=== PATIENT | female | born 1995 | race Caucasian/White ===

== ENCOUNTER 2018-06-10 09:00 | Outpatient (CLI) | payer OTHER ==
--- NOTE | 2018-06-10 11:25 | ULT ---
ULTRASOUND ABDOMEN: Date: 06/10/18 HISTORY: Abdominal pain. COMPARISON: None. TECHNIQUE: Real-time Wren scale with color Doppler and spectral analysis of the abdomen performed. FINDINGS: The intrahepatic echotexture is normal. Visualized portions of the aorta and IVC are unremarkable. Li pat measures 14.6 cm in length. Portal vein is patent with antegrade flow. Gallbladder wall thickness is normal. Both kidneys are unremarkable. No renal mass, hydronephrosis, o r abnormal calcifications. Spleen measures 9.4 cm in length. IMPRESSION: Normal exam. POS: [facility]
--- NOTE | 2018-06-10 12:31 | ULT ---
PELVIC ULTRASOUND: HISTORY: The patient has not had a period in several years. Bloating. History of Crohn's. FINDINGS: Real-time imaging of the pelvis was obtained transabdominally as well as with an endovaginal probe. This shows a uterus measuring 3.8 x 4.1 x 9.4 cm. Endometrium is mildly thickened at 7 cm. The right ovary is difficult to visualize but appears fairly normal in appearance. The left ovary is never definitively seen. There is some free fluid in the cul-de-sac. DOPPLER EVALUATION WITH SPECTRAL ANALYSIS: Normal flow is shown to the right adnexal region. IMPRESSION: 1. Mildly thickened endometrium. 2. Normal-appearing right ovary. The left ovary is not visualized. POS: [facility]
== END 2018-06-10 09:01 | disposition home or self-care (01) ==
LOC: SCSULT 09:00
PROVIDERS: ATTEND Internal Medicine Gastroenterology
DX: R14.0 Abdominal distension (gaseous) (principal); K50.90 Crohn's disease, unspecified, without complications; E55.9 Vitamin D deficiency, unspecified; R63.5 Abnormal weight gain; N30.10 Interstitial cystitis (chronic) without hematuria; R93.8 Abnormal findings on diagnostic imaging of other specified body structures
CPT/HCPCS: 76700; 76856

== ENCOUNTER 2020-06-14 18:00 | Inpatient (IN) | payer BC, OTHER ==
[~2020-06-14 18:00] MED LIST: Bupivacaine HCl 0.5%/Epinephrine 1:200,000/PF 30 ml Vial ONE; Bupivacaine/Epinephrine 0.25% 30 ML VIAL ONE
[2020-06-14] MEDS ORDERED: Lidocaine 1% (PF) 30 ML VIAL SC PRN (19:20)
[2020-06-14] MEDS ORDERED: Misoprostol 200 MCG TAB PR PRN (19:20)
[2020-06-14] MEDS ORDERED: Ibuprofen 800 MG TAB PO PRN (19:20)
[2020-06-14] MEDS ORDERED: HYDROcodone/Acetaminophen 5/325 mg Tablet PO PRN (19:20)
[2020-06-14] MEDS ORDERED: Ondansetron PF 4 MG/2 ML Vial IVP PRN (19:20)
[2020-06-14] MEDS ORDERED: Diphenoxylate HCl/Atropine Tablet PO PRN (19:20)
[2020-06-14] MEDS ORDERED: Carboprost 250 MCG/ML AMP IM PRN (19:20)
[2020-06-14] MEDS ORDERED: Promethazine HCl 25 MG/ML VIAL IM PRN (19:20)
[2020-06-14] MEDS ORDERED: NS / Oxytocin 40 units/1000ml 1,000 ML IV PRN (19:20)
[2020-06-14] MEDS ORDERED: Methylergonovine 0.2 MG/ML VIAL IM PRN (19:20)
[2020-06-14] MEDS ORDERED: hydrALAZINE 20 MG/ML VIAL SLOW IVP PRN (19:20)
[2020-06-14] MEDS ORDERED: Acetaminophen 500 MG TAB PO PRN (19:20)
[2020-06-14] MEDS: Lactated Ringer's 1,000 ML IV SCH (19:40)
[2020-06-14 20:06] VITALS: BMI 33.5
[2020-06-14] MEDS: Misoprostol 100 MCG TAB VAG SCH (20:20)
[2020-06-14] MEDS: NS w/ Oxytocin 10 units 500 ML IV SCH (20:22)
[2020-06-14 20:41] LABS: Hemoglobin 10.7 g/dL (12.0-16.0); Mean Corpuscular HGB CONC 35.4 g/dL (32.0-36.0); Mean Corpuscular Hemoglobin 31.1 pg (27.0-31.0); Mean Corpuscular Volume 87.9 fL (78.0-98.0); Mean Platelet Volume 7.1 fL (7.4-10.4); Platelet Count 266 thou/uL (130-400); RBC Distribution Width 12.5 % (11.5-14.5); Red Blood Cell (RBC) Count 3.45 mill/uL (4.20-5.40); White Blood Cell (WBC) Count 8.5 thou/uL (4.8-10.8)
[2020-06-14 21:17] LABS: Syphilis Antibody Nonreactive (Nonreactive); Syphilis Antibody Index 0.03 S/CO (<1.00 Non-Reactive)
[2020-06-14 23:51] LABS: HBSAg Index 0.11 S/CO (0-0.99); Hep B Surf Ag Non-Reactive S/CO (NonReactive)
[2020-06-15] MEDS: Butorphanol Tartrate 1 MG/ML VIAL SLOW IVP PRN ×2 (00:09→04:29)
[2020-06-15] MEDS: Misoprostol 100 MCG TAB VAG SCH ×7 (00:10→21:42)
[2020-06-15] MEDS: Lactated Ringer's 1,000 ML IV SCH ×3 (02:45→15:25)
[2020-06-15] MEDS ORDERED: Fentanyl 4 mcg/Bup 0.1% Cadd 100 ML ONE ×2 (07:16→14:28)
[2020-06-15] MEDS ORDERED: Naloxone HCl 0.4 mg/ml Vial IVP PRN ×4 (07:49→15:19)
[2020-06-15] MEDS ORDERED: EPHEDRINE 25 MG/5 ML SYRINGE SLOW IVP PRN ×2 (07:49→15:19)
[2020-06-15] MEDS ORDERED: Promethazine HCl 25 MG/ML VIAL IM PRN ×2 (07:49→15:19)
[2020-06-15] MEDS ORDERED: Acetaminophen 325 MG TAB PO PRN ×2 (07:49→15:19)
[2020-06-15] MEDS ORDERED: Ondansetron PF 4 MG/2 ML Vial IVP PRN ×2 (07:49→15:19)
[2020-06-15] MEDS ORDERED: diphenhydrAMINE 50 MG/ML VIAL IVP PRN ×2 (07:49→15:19)
[2020-06-15] MEDS ORDERED: Lactated Ringer's 500 ML IV PRN ×2 (07:49→15:19)
[2020-06-15] MEDS ORDERED: Fentanyl 4 mcg/Bupivacaine 0.1% Cassette 100 ML EPIDURAL SCH ×2 (08:00→15:30)
[2020-06-15] MEDS ORDERED: Communication Order-Pharmacy FS SCH ×2 (08:00→15:30)
--- NOTE | 2020-06-15 08:34 | PDOC.LDHP ---
Labor and Delivery H&P Chief complaint: scheduled induction HPI: 25yo at 37w1d by LMP here for IOL due to anti salvador ab. Pt also has crohns. s/p cytotec x [address] FHR reassuring. Current gestational age (weeks): 37 Due date: 07/05/20 Dating criteria: last menstrual period Grav: 1 Para: 0 Current complications: other (anti salvador ab positive, fob salvador antigen positive also.) Abnormal US findings: No Past Medical History: crohns, endometriosis, interstitial cystitis Current medications: pre- vitamins, other (remicaide) Previous surgical history: other (laparoscopy, endoscopy, colonoscopy) Allergies/Adverse Reactions: Allergies Allergy/AdvReac Type Severity Reaction Status Date / Time amoxicillin Allergy Rash Verified 06/14/20 19:48 Sulfa (Sulfonamide Allergy Rash Verified 06/14/20 19:48 Antibiotics) Social history: none - Physical Exam Vital signs reviewed and normal: yes General: NAD Heart: RRR Lungs: CTAB Abdomen: gravid Extremeties: no edema FHT: category 1 [place] contractions every: 2-3min - Vaginal Exam cm dilated: 3 Effacement: 50% Station: -3 (arom clear) - OB Labs Blood type: A RH: positive Antibody Screen: positive HIV: negative RPR: negative HEPSAg: negative 1 hour GCT: negative GBS: negative Urine drug screen: negative Rubella: immune - Assessment L&D Assessment: medically indicated induction - Plan Plan: admit to L&D, cervical ripening, labor augmentation if indicated, informed consent obtained, anesthesia consult for pain management
[2020-06-15] MEDS: NS w/ Oxytocin 10 units 500 ML IV SCH (08:55)
[2020-06-15] MEDS ORDERED: Misoprostol 200 MCG TAB ONE (23:09)
[2020-06-15] MEDS ORDERED: NS / Oxytocin 40 units/1000ml 0 ML ONE (23:10)
[2020-06-15] MEDS ORDERED: Methylergonovine 0.2 MG/ML VIAL ONE (23:10)
[2020-06-15] MEDS ORDERED: Carboprost 250 MCG/ML AMP ONE (23:10)
--- NOTE | 2020-06-16 00:17 | PDOC.OPDEL ---
OB Operative/Delivery Note Delivery Dr/Surgeon: Hermes Assist: Sebastian ([id number]) Pre-Delivery Diagnosis: active labor, other (Olivia antibody) Procedure/Post Delivery Dx: spontaneous vaginal delivery Anesthesia: epidural - Findings A Sex: male - 1 min: 8 - 5 min: 9 - Additional Findings/Plan Placenta delivered: spontaneous (Vaz about 3 minutes after baby delivery; placenta intact with 3VC) Repaired Obstetrical Laceration: none Estimated blood loss: 450 Compilations/Other Findings: No complications No lacs noted as we allowed perineal muscles to accomodate with head at +4/+5 for 1-2 pushes No vag packs Post delivery plan: routine recovery
[2020-06-16] MEDS ORDERED: Milk Of Magnesia 30 ML UDCUP PO PRN (00:19)
[2020-06-16] MEDS ORDERED: hydrALAZINE 20 MG/ML VIAL SLOW IVP PRN (00:19)
[2020-06-16] MEDS ORDERED: Bisacodyl 10 MG SUPP PR PRN (00:19)
[2020-06-16] MEDS ORDERED: Benzocaine-Menthol 82.5 ML CAN TOP PRN (00:19)
[2020-06-16] MEDS ORDERED: Preparation H Ointment 28 GM TUBE PR PRN (00:19)
[2020-06-16] MEDS ORDERED: Acetaminophen/Codeine 30-300mg Tablet PO PRN ×2 (00:19)
[2020-06-16] MEDS ORDERED: Lanolin Ointment 7 GM TUBE TOP PRN (00:19)
[2020-06-16] MEDS ORDERED: NS / Oxytocin 40 units/1000ml 1,000 ML IV SCH (00:30)
[2020-06-16] MEDS: Ibuprofen 800 MG TAB PO SCH ×3 (00:52→20:08)
[2020-06-16] MEDS: Lactated Ringer's 1,000 ML IV SCH ×3 (01:54→20:25)
[2020-06-16] MEDS: Misoprostol 100 MCG TAB VAG SCH ×2 (01:55→02:18)
[2020-06-16] MEDS: Docusate Calcium (SURFAK) 240 MG CAP PO SCH ×2 (08:24→20:08)
[2020-06-16] MEDS: Prenatal Vitamin 1 TAB PO SCH (08:24)
[2020-06-16] MEDS: Ferrous Sulfate 325 MG TAB PO SCH ×2 (08:25→13:56)
--- NOTE | 2020-06-16 08:30 | PDOC.PP ---
Post Progress Note Post Day #: 1 PO intake tolerated: yes Flatus: yes Ambulation: yes Vital Signs (12 hours) Temp Pulse Resp BP Pulse Ox 06/16/20 08:01 98.3 F 72 20 110/64 96 06/16/20 05:35 98.0 F 71 15 115/55 L 06/16/20 04:20 98.3 F 76 16 116/64 06/16/20 02:55 98.5 F 66 17 114/59 L Weight Weight 189 lb - Physical Examination General: NAD Respiratory: non-labored breathing Abdominal: no distention, appropriately TTP Fundus firm & at: umb Extremities: negative homans (B) Neurological: no gross focal deficits Psychiatric: normal affect Result Diagrams: 06/14/20 20:09 Additional Labs: Post Labs Hep Bs Antigen Non-Reactive S/CO (NonReactive) 06/14/20 20:09 Blood Type A POSITIVE 06/14/20 22:38 - Assessment/Plan PPD1 s/p TSVD Doing well, no complaints, lochia appropriate Cont PP care
[2020-06-16] MEDS ORDERED: Measles/Mumps/Rubella 10 MCG/0.5 ML VIAL SC ONE (09:00)
[2020-06-16] MEDS ORDERED: Varicella virus, LIVE 0.5 ML VIAL SC ONE (09:00)
[2020-06-16] MEDS ORDERED: Adacel (T-DAP) 0.5 ML SYRINGE IM ONE (09:00)
[2020-06-16] MEDS: NS w/ Oxytocin 10 units 500 ML IV SCH (19:25)
[2020-06-17] MEDS: Ibuprofen 800 MG TAB PO SCH ×2 (05:34→14:05)
[2020-06-17] MEDS ORDERED: Ondansetron ODT 4 MG TAB PO PRN (08:32)
[2020-06-17] MEDS: Ferrous Sulfate 325 MG TAB PO SCH (08:54)
[2020-06-17] MEDS: Lactated Ringer's 1,000 ML IV SCH (08:56)
[2020-06-17] MEDS: Prenatal Vitamin 1 TAB PO SCH (08:59)
[2020-06-17] MEDS: Docusate Calcium (SURFAK) 240 MG CAP PO SCH (09:00)
[2020-06-17 12:35] VITALS: BP 128/71; TEMP 98.6
--- NOTE | 2020-06-17 13:03 | PDOC.PP ---
Post Progress Note Post Day #: 2 PO intake tolerated: yes Flatus: yes Ambulation: yes Vital Signs (12 hours) Temp Pulse Resp BP Pulse Ox 06/17/20 08:00 98.6 F 96 12 128/71 96 Weight Weight 189 lb - Physical Examination General: NAD Respiratory: non-labored breathing Abdominal: no distention, appropriately TTP Neurological: no gross focal deficits Psychiatric: normal affect Result Diagrams: 06/14/20 20:09 Additional Labs: Post Labs Hep Bs Antigen Non-Reactive S/CO (NonReactive) 06/14/20 20:09 Blood Type A POSITIVE 06/14/20 22:38 - Assessment/Plan PPD2 s/p TSVD VSSAF No issues Rh pos RImm DC home FU 6w
== END 2020-06-17 16:05 | disposition home or self-care (01) | DRG 806 ==
LOC: L&D 18:09 → 3SW 06-16 03:16
PROVIDERS: ADMIT Student in an Organized Health Care Education/Training Program; ATTEND Student in an Organized Health Care Education/Training Program
PROC: 10E0XZZ Delivery of Products of Conception, External Approach (ICD-10-PCS; principal; 2020-06-16)
PROC: 3E033VJ Introduction of Other Hormone into Peripheral Vein, Percutaneous Approach (ICD-10-PCS; 2020-06-16)
DX: O99.62 Diseases of the digestive system complicating childbirth (principal); K50.90 Crohn's disease, unspecified, without complications; Z37.0 Single live birth; Z3A.37 37 weeks gestation of pregnancy; Z88.1 Allergy status to other antibiotic agents; Z88.2 Allergy status to sulfonamides
CPT/HCPCS: 36415; 51702; 85027; 86780; 86850; 86900; 86901; 87340; J0595; J0670; J2210; J2405; J2590; J3490; Q0162